=== PATIENT | female | born 1980 | race Caucasian/White ===

== ENCOUNTER 2019-05-24 08:23 | Emergency (ER) | payer OTHER ==
[~2019-05-24] VITALS: Ht 167.6 cm; Wt 81.8 kg
[2019-05-24 08:32] VITALS: BP 140/98
[2019-05-24] MEDS ORDERED: HYDROcodone/acetaminophen 5mg/325mg tablet PO ONE (09:00)
[2019-05-24] MEDS ORDERED: ondansetron 4mg rapidly disintigrating tab PO ONE (09:25)
[2019-05-24] MEDS ORDERED: ONDA4TAB6 PO (09:44)
[2019-05-24] MEDS ORDERED: HYDR-3965 PO (09:44)
== END 2019-05-24 09:59 | disposition home or self-care (01) ==
LOC: ER 08:24
DX: S92.352A Displaced fracture of fifth metatarsal bone, left foot, initial encounter for closed fracture (principal); Z79.899 Other long term (current) drug therapy; Z98.890 Other specified postprocedural states; W18.39XA Other fall on same level, initial encounter; Y93.89 Activity, other specified; Y92.89 Other specified places as the place of occurrence of the external cause; Y99.8 Other external cause status
CPT/HCPCS: 73630; 99283; 99284